=== PATIENT | male | born 1980 | race Asian ===

== ENCOUNTER 2016-08-20 02:10 | Inpatient (IN) | payer MEDICARE ==
[~2016-08-20] VITALS: Ht 170.2 cm; Wt 75.8 kg
[2016-08-20 03:00] LABS: BASOPHILS # (AUTO) 0.02 K/uL (0.00-0.20); BASOPHILS % (AUTO) 0.1 % (0.0-2.0); EOSINOPHILS # (AUTO) 0.01 K/uL (0.00-0.70); EOSINOPHILS % (AUTO) 0.12 % (1.0-6.0); HEMATOCRIT 44.6 % (41-53); HEMOGLOBIN 14.9 g/dL (13.5-17.5); LYMPHOCYTES # (AUTO) 1.3 K/uL (1.0-4.8); LYMPHOCYTES % (AUTO) 11.5 % (22.0-44.0); MEAN CORPUSCULAR HEMOGLOBIN 29.2 pg (26.0-34.0); MEAN CORPUSCULAR HGB CONC 33.4 G/dL (31.0-37.0); MEAN CORPUSCULAR VOLUME 87 fL (80-100); MONOCYTES # (AUTO) 0.7 K/uL (0.1-1.0); MONOCYTES % (AUTO) 6.1 % (2.0-9.0); NEUTROPHILS # (AUTO) 9.2 K/uL (1.8-7.7); NEUTROPHILS % (AUTO) 82.1 % (40.0-70.0); PLATELET COUNT (AUTO) 362 K/uL (150-450); RED CELL DISTRIBUTION WIDTH 12.6 % (11.5-14.5); WHITE BLOOD COUNT (AUTO) 11.1 K/uL (4.5-11.0)
[2016-08-20 03:09] LABS: ANION GAP 14 mmol/L (8-16); CARBON DIOXIDE 25 mmol/L (22-29); CHLORIDE 101 mmol/L (98-107); CREATININE 0.97 mg/dL (0.60-1.30); POTASSIUM 3.2 mmol/L (3.5-5.1); SODIUM SERUM 140 mmol/L (136-145); UREA NITROGEN, BLOOD 11 mg/dL (7-18)
[2016-08-20 03:10] LABS: CALCIUM, TOTAL 9.1 mg/dL (8.8-10.5); GLOMERULAR FILTR. RATE CALC > 60 mL/min (>60)
[2016-08-20 03:16] LABS: ALANINE AMINOTRANSFERASE 33 U/L (12-78); ALBUMIN 4.4 g/dL (3.4-5.0); ASPARTATE AMINOTRANSFERASE 22 U/L (15-37); TOTAL PROTEIN, SERUM 7.9 g/dL (6.4-8.2)
[2016-08-20] MEDS ORDERED: ZOLPIDEM TARTRATE 10 MG TABLET PO PRN (04:45)
[2016-08-20] MEDS ORDERED: POTASSIUM CHLORIDE 20 MEQ ER TABLET PO ONE (05:45)
[2016-08-20] MEDS ORDERED: CloNIDine HCL 0.1 MG TABLET PO PRN (07:45)
[2016-08-20] MEDS ORDERED: ONDANSETRON HCL 4 MG TABLET PO PRN (07:45)
[2016-08-20] MEDS ORDERED: MAG HYDROX/AL HYDROX/SIMETH ES 30 ML SUSPENSION UDCUP PO PRN (07:45)
[2016-08-20] MEDS ORDERED: BENZOCAINE/MENTHOL LOZENGE MM PRN (07:45)
[2016-08-20] MEDS ORDERED: ALBUTEROL SULFATE HFA 90 MCG/PUFF 8 GM INHALER IH PRN (07:45)
[2016-08-20] MEDS ORDERED: MAGNESIUM HYDROXIDE SUSPENSION 30 ML UDCUP PO PRN (07:45)
[2016-08-20] MEDS ORDERED: LOPERAMIDE HCL 2 MG CAPSULE PO PRN (07:45)
[2016-08-20] MEDS ORDERED: ACETAMINOPHEN 325 MG TABLET PO PRN (07:45)
[2016-08-20] MEDS ORDERED: IBUPROFEN 600 MG TABLET PO PRN (07:45)
[2016-08-20] MEDS ORDERED: BACITRACIN 28.4 GM OINTMENT TP PRN (07:45)
[2016-08-20] MEDS ORDERED: PETROLATUM,WHITE 71 GM JELLY TP PRN (07:45)
[2016-08-20 07:55] LABS: CHOL/HDL RATIO 3.4 (4.2-7.3)
[2016-08-20] MEDS: LORazepam 2 MG TABLET PO PRN ×2 (09:02→16:40)
[2016-08-20] MEDS: HALOPERIDOL 5 MG TABLET PO PRN ×2 (09:03→16:40)
[2016-08-20 09:45] VITALS: BP 132/84
[2016-08-20 16:00] VITALS: BP 122/77
[2016-08-21 06:08] VITALS: BP 111/79
[2016-08-21 08:48] VITALS: BP 137/91
[2016-08-21] MEDS: RisperiDONE 1 MG TABLET PO SCH ×2 (09:15→20:49)
[2016-08-21] MEDS: LORazepam 2 MG TABLET PO PRN (09:15)
[2016-08-21] MEDS: HALOPERIDOL 5 MG TABLET PO PRN (09:15)
[2016-08-21 16:17] VITALS: BP 115/68
[2016-08-22 00:10] VITALS: BP 123/76
[2016-08-22 08:13] VITALS: BP 131/84
[2016-08-22] MEDS: RisperiDONE 1 MG TABLET PO SCH ×2 (08:29→20:53)
[2016-08-22] MEDS: LORazepam 2 MG TABLET PO PRN (08:29)
[2016-08-22 16:00] VITALS: BP 124/73
[2016-08-22] MEDS ORDERED: HEPATITIS A VACCINE, INACTI [ADULT] 1,440 UNITS/ML VIAL IM ONE (16:30)
[2016-08-23 06:30] VITALS: BP 128/79
[2016-08-23 08:00] VITALS: BP 111/74
[2016-08-23] MEDS ORDERED: RISP1 PO (08:06)
[2016-08-23] MEDS: RisperiDONE 1 MG TABLET PO SCH (09:37)
== END 2016-08-23 10:30 | disposition home or self-care (01) | DRG 885 ==
LOC: EMS 02:12 → B3A 06:20
PROC: 3E0234Z Introduction of Serum, Toxoid and Vaccine into Muscle, Percutaneous Approach (ICD-10-PCS; principal; 2016-08-23)
DX: F29 Unspecified psychosis not due to a substance or known physiological condition (principal); F20.9 Schizophrenia, unspecified; H54.41 Blindness, right eye, normal vision left eye; F15.129 Other stimulant abuse with intoxication, unspecified; F17.210 Nicotine dependence, cigarettes, uncomplicated; E87.6 Hypokalemia; K59.00 Constipation, unspecified; G47.00 Insomnia, unspecified; Z97.0 Presence of artificial eye; Z88.5 Allergy status to narcotic agent; Z71.51 Drug abuse counseling and surveillance of drug abuser; Z71.6 Tobacco abuse counseling; Z23 Encounter for immunization
CPT/HCPCS: 84132; 90632; 99285; G0480